=== PATIENT | male | born 2000 | race Caucasian/White ===

== ENCOUNTER 2022-09-28 02:57 | Emergency (ER) | payer OTHER, SELFPAY ==
[2022-09-28 03:00] VITALS: BP 137/75; PULSE 58; RESP 14; TEMP 36.3; O2SAT 100
--- NOTE | 2022-09-28 04:57 | ED.GENADULT ---
HPI - General Adult General Chief complaint: Ear Stated complaint: left ruptured ear drum Time Seen by Provider: 09/28/22 04:07 History of Present Illness HPI narrative: this is a 22-year-old male presenting ED with chief complaint of ear pain and bleeding. Patient has had congestion from allergies over last several days. He then woke up around 4:00 a.m. with severe ear pain. After about 30 minutes he noticed he was bleeding from his ear. He has had some decreased hearing. He does not have this dizziness or vertigo. He has not been ill with fever chills nausea vomiting or diarrhea. Patient has not put anything into his ear canal. Related Data Allergies Allergy/AdvReac Type Severity Reaction Status Date / Time No Known Allergies Allergy Verified 09/28/22 02:57 [facility] Family History Family History Other Hypertension Social History Social History Smoking status: Never smoker Exam Narrative: APPEARANCE: No apparent distress. Head: right eardrum is normal. Left tympanic is ruptured with some bleeding. EYES: EOMI, NOSE: Atraumatic NECK: Trachea midline RESPIRATORY: No increased rate of breathing CARDIOVASCULAR: RRR, ABDOMINAL: Non-distended MUSCULOSKELETAl: No obvious deformities NEURO: Alert. Moving 4/4 extremities SKIN:: Warm, dry. Normal color PSYCHIATRIC: Normal affect Course Vital Signs Vital signs: Vital Signs Temperature 97.4 F L 09/28/22 03:00 Pulse Rate 58 L 09/28/22 03:00 Respiratory Rate 14 09/28/22 03:00 Blood Pressure 137/75 09/28/22 03:00 Pulse Oximetry 100 09/28/22 03:00 Oxygen Delivery Room Air 09/28/22 03:00 Temperature 97.4 F L 09/28/22 03:00 Pulse Rate 58 L 09/28/22 03:00 Respiratory Rate 14 09/28/22 03:00 Blood Pressure 137/75 09/28/22 03:00 Pulse Oximetry 100 09/28/22 03:00 Oxygen Delivery Room Air 09/28/22 03:00 Medical Decision Making [facility] Narrative Medical decision making narrative: -Presentation: 22-year-old presenting with bloody discharge from ear -DDX includes but is not limited to: acute otitis media, ruptured TM -Co-morbidities complicating care: none -Social determinants of health: patient works at [employer] lives with his parents -External Chart Review: none -Hx from independent Sources: mom and dad at bedside -Discussion of Management/ consultants -Independent interpretation of studies: otoscopic exam revealed a ruptured membrane on the left Dx tests considered but not ordered: none -Procedures: none -Interventions: [place] -Shared decision making / Disposition: patient has a ruptured tympanic membrane. He will be given ofloxacin ear drops and ENT follow-up. Patient has been advised to avoid placing anything in his ear and did not allow water in his ear. Return emergency department for of severe pain, dizziness or vertigo -RX ofloxacin ear drops Vital Signs Vital Signs: Vital Signs Temperature 97.4 F L 09/28/22 03:00 Pulse Rate 58 L 09/28/22 03:00 Respiratory Rate 14 09/28/22 03:00 Blood Pressure 137/75 09/28/22 03:00 Pulse Oximetry 100 09/28/22 03:00 Oxygen Delivery Room Air 09/28/22 03:00 Temperature 97.4 F L 09/28/22 03:00 Pulse Rate 58 L 09/28/22 03:00 Respiratory Rate 14 09/28/22 03:00 Blood Pressure 137/75 09/28/22 03:00 Pulse Oximetry 100 09/28/22 03:00 Oxygen Delivery Room Air 09/28/22 03:00 Discharge Plan Discharge Clinical Impression: Rupture of tympanic membrane Patient Disposition: Home, Self-Care Condition: Stable Instructions: Antibiotic Form, Ruptured Eardrum (ED) Additional Instructions: You were seen in the emergency department for a ruptured eardrum. Please do not allow water in your ear. Do not put any Q-tips in your years. Please use ofloxacin ear drops and schedule an appointment with ENT as early as p
[2022-09-28] MEDS: HYDROcodone/acetaminophen (*CRX) 5-325 MG TABLET 1 TAB PO (05:01)
== END 2022-09-28 05:24 | disposition home or self-care (01) ==
PROVIDERS: Emergency Provider Emergency Medicine
DX: H72.92 Unspecified perforation of tympanic membrane, left ear (principal)
CPT/HCPCS: 99283; A9270